=== PATIENT | female | born 1955 | race Caucasian/White ===

== ENCOUNTER 2021-04-07 12:41 | Emergency (ER) | payer MEDICARE ==
[2021-04-07 12:49] VITALS: BP 158/84; PULSE 90; RESP 18; TEMP 97.7
[2021-04-07] MEDS ORDERED: DIPH,PERTUS(ACELL)TETVAC-LF 0.5 ML VIAL IM ONE (13:09)
[2021-04-07] MEDS ORDERED: LIDOCAINE 1% INJ 10MG/ML (20 ML MDV) SQ ONE (13:09)
--- NOTE | 2021-04-07 13:31 | XR ---
EXAMINATION TYPE: XR finger RT DATE OF EXAM: 04/07/2021 CLINICAL HISTORY: pain TECHNIQUE: 3 views of the right first digit are submitted. COMPARISON: None FINDINGS: No displaced fracture is seen with certainty. Joint spaces are well-preserved. Soft tissue injury. No evidence for radiopaque foreign body. IMPRESSION: No acute displaced fracture or dislocation.
--- NOTE | 2021-04-07 14:05 | ED ---
Wound/Laceration HPI - General Chief Complaint: Wound/Laceration Stated Complaint: finger lac Time Seen by Provider: 04/07/21 13:03 Source: patient, RN notes reviewed Mode of arrival: ambulatory Limitations: no limitations - History of Present Illness Initial Comments: 66-year-old female complaining of a right thumb laceration after getting her finger cut by a butcher meat at her niece's daily. She notes that the pain is mild and does not want any pain medication this time. She is unsure of her last tetanus vaccine. She notes that she came in to get some stitches. She denied any other issues or complaints. He denied any weakness numbness tingling decreased sensation in her right thumb. - Related Data Allergies Allergy/AdvReac Type Severity Reaction Status Date / Time sulfamethoxazole Allergy Itching Verified 04/07/21 12:45 [From Bactrim] trimethoprim [From Bactrim] Allergy Itching Verified 04/07/21 12:45 Review of Systems ROS Statement: Those systems with pertinent positive or pertinent negative responses have been documented in the HPI. ROS Other: All systems not noted in ROS Statement are negative. Past Medical History Past Medical History: COPD, Hyperlipidemia, Hypertension, Thyroid Disorder History of Any Multi-Drug Resistant Organisms: None Reported Past Surgical History: Adenoidectomy, Coronary Bypass/CABG, Hysterectomy, Tonsillectomy Past Psychological History: No Psychological Hx Reported Smoking Status: Former smoker Past Alcohol Use History: None Reported Past Drug Use History: None Reported General Exam Limitations: no limitations General appearance: alert, in no apparent distress Head exam: Present: atraumatic, normocephalic, normal inspection Eye exam: Present: normal appearance, PERRL, EOMI. Absent: scleral icterus, conjunctival injection, periorbital swelling Neck exam: Present: normal inspection Respiratory exam: Present: normal lung sounds bilaterally. Absent: respiratory distress, wheezes, rales, rhonchi, stridor Cardiovascular Exam: Present: regular rate, normal rhythm, normal heart sounds. Absent: systolic murmur, diastolic murmur, rubs, gallop, clicks Extremities exam: Present: normal inspection, full ROM, normal capillary refill. Absent: tenderness, pedal edema, joint swelling, calf tenderness Right Hand Wrist exam: Present: normal inspection, laceration (Right tip of the thumb measuring approximately 1 cm) Neurological exam: Present: alert, oriented X3 Psychiatric exam: Present: normal affect, normal mood Skin exam: Present: warm, dry, intact, normal color. Absent: rash Course Vital Signs 04/07/21 12:45 Temperature 97.7 F Pulse Rate 90 Respiratory 18 Rate Blood Pressure 158/84 O2 Sat by Pulse 96 Oximetry Procedures - Laceration Laceration #1 Consent Obtained: verbal consent Indication: laceration Site: hand (Right thumb distal and) Size (cm): 1 Description: stellate Depth: simple, single layer Anesthetic Used: lidocaine 1% Anesthesia Technique: local infiltration Amount (mls): 4 Pre-repair: wound explored Type of Sutures: nylon Size of Sutures: 5-0 Number of Sutures: 3 Technique: simple, interrupted Patient Tolerated Procedure: well, no complications Medical Decision Making - Medical Decision Making 66-year-old female with a right thumb laceration from a butcher meat. X-ray of the right thumb, lidocaine, tetanus vaccine ordered. X-ray negative for any bone involvement, patient tolerated suturing well. Case discussed Dr. Asif, patient discharge home with follow-up to primary care - Radiology Data Radiology results: report reviewed, image reviewed Right thumb x-ray: No acute displaced fracture dislocation. Disposition Clinical Impression: Laceration Disposition: HOME SELF-CARE Condition: Stable Instructions (If sedation given, give patient instructions): Laceration (ED), Care For Your Stitches (ED) Additional Instructions: Please return to the Emergency Department if symptoms worsen or any other concerns. Keep area clean and dry for the first 24 hours then he can wash with warm water gentle soap. Please return in 10 days to have sutures removed. Take Tylenol Motrin as needed for pain control. Is patient prescribed a controlled substance at d/c from ED?: No Referrals: None,Stated [Primary Care Provider] - 1-2 days Time of Disposition: 14:10
== END 2021-04-07 14:13 | disposition home or self-care (01) ==
LOC: EC 12:41
DX: S61.011A Laceration without foreign body of right thumb without damage to nail, initial encounter (principal); I10 Essential (primary) hypertension; E78.5 Hyperlipidemia, unspecified; J44.9 Chronic obstructive pulmonary disease, unspecified; Z95.1 Presence of aortocoronary bypass graft; Z87.891 Personal history of nicotine dependence; Z88.1 Allergy status to other antibiotic agents; Z88.2 Allergy status to sulfonamides; W26.8XXA Contact with other sharp object(s), not elsewhere classified, initial encounter
CPT/HCPCS: 12001 ×2; 90471 ×2; 99283 ×2; 73140; 90715; J2001

== ENCOUNTER 2024-01-23 19:35 | Outpatient (CLI) | payer MEDICARE ==
--- NOTE | 2024-02-07 13:21 | P.PCN ---
Date of Procedure: 01/23/24 Operative Findings: Polysomnography report Date of service is 01/23/2024 Pertinent history 68-year-old female patient with known history of COPD and obstructive sleep apnea. The patient has had history of severe obstructive sleep apnea with an AHI of 41. The patient continues to complain of chronic hypersomnia sleepiness. She was excessively fragmented in her sleep and she was also having nocturnal oxygen saturation. She was asked to come in to the sleep center to undergo a CPAP titration. The patient's comorbid conditions include coronary artery disease, chronic A-fib hypertension hyperlipidemia Pertinent physical findings The patient's weight is 231 pounds with a body mass index of 38.4 Technical description The patient was studied using a standard complex polysomnography protocol that included recording of the 2 EKG, Central, occipital and frontal EEG, right and left outer canthus EOG, submental EMG, right and left anterior tibialis EMG, respiratory airflow by thermocouple and or pressure/flow transducer, respiratory efforts by abdominal and thoracic PVDF belts, oxygen saturation by cable oximetry. Position by observation synchronized the PSG. Stepwise CPAP titration was done to eliminate. obstructive respiratory events equipment used: [employer]. Sleep characteristics The sleep study was done with a total recording duration of 390.5 minutes. The total sleep time was 287.5 minutes. The overall sleep efficiency was 73.6%. Latency to sleep onset was 25.5 minutes and related to REM sleep was 109.0 minutes. The patient's wake after sleep onset time was 77.5 minutes. The sleep architecture was catheterized by 5.7% stage I, 67% stage II, 5.6% stage III and 22.8% REM sleep. Respiratory analysis CPAP titration was done initially starting at a pressure of 7 cm of water pressure was gradually increased by increments of 1 cm to reach a maximum CPAP pressure of 15 cm of water. Noted the patient was demonstrating improvement and elimination of the obstructive respiratory events with some occasional obstructive hypopneas specially during REM sleep. Noted the study was done essentially while the patient being in a supine body position. As a titration was continued, the patient was switched to BiPAP and utilize pressures were 15/11 and maximum pressure she was 17 over 30 cm of water. Upon comparing BiPAP versus CPAP, the patient did much better on the BiPAP and there was completed ablation of the obstructive respiratory events and a BiPAP target pressure of 17 over 13 cm of water. Based on an underlying history of COPD, BiPAP therapy will refer to over CPAP therapy especially the patient showed better tolerability and improvement in obstructive respiratory events without any significant desaturations while being on BiPAP. Sleep continuity summary The patient had a total of 27 arousals with an index of 5.6. Respiratory arousal index was 0.4 Periodic limb movements Excessive periodic limb movements were noted with a total of 403 periodic limb movement activity with an index of 84.1. Nevertheless, those were not associated with any arousals Cardiac summary Average heart rate was 69 with a minimum heart rate of 56 and a maximum heart of 83 Assessment Severe symptomatic NOAM with an AHI of 41 associated with chronic hypersomnia sl eepiness and sleep fragmentation. Patient underwent a successful CPAP/BiPAP titration COPD with an FEV1 of 39% of predicted maintained on Breztri Chronic A-fib Coronary artery disease Hypertension Hyperlipidemia History of pulmonary nodules being monitored Plan Initiate BiPAP therapy. The patient will be started on a auto BiPAP utilizing a VPAP machine with an EPAP minimum of 10 and a maximum pressure of 17 and a pressure support of 4. Based on her history of COPD, the patient will do better on a BiPAP versus a CPAP. The patient will be also provided with appropriate mask interface. The patient was fitted to an AirFit N20 small size nasal mask. The patient will see him back in the office in 30 to 90 days to assess clinical response and compliancy and we will make further adjustments in the pressure setting and the mask interface accordingly. Optimize sleep hygiene measures. Optimize comorbidities. Weight loss. Will continue to follow.
== END 2024-01-24 05:40 | disposition home or self-care (01) ==
LOC: 3 N SLEEP 19:35
PROVIDERS: ATTEND Internal Medicine Critical Care Medicine
DX: G47.33 Obstructive sleep apnea (adult) (pediatric) (principal); G47.10 Hypersomnia, unspecified; J44.9 Chronic obstructive pulmonary disease, unspecified; I48.20 Chronic atrial fibrillation, unspecified; I25.10 Atherosclerotic heart disease of native coronary artery without angina pectoris; I10 Essential (primary) hypertension; E78.5 Hyperlipidemia, unspecified; R91.8 Other nonspecific abnormal finding of lung field; Z88.2 Allergy status to sulfonamides; Z91.048 Other nonmedicinal substance allergy status
CPT/HCPCS: 95811